=== PATIENT | female | born 1980 | race Two or more races ===

== ENCOUNTER 2021-03-23 09:15 | Outpatient (CLI) | payer OTHER ==
[2021-03-23 16:44] LABS: SARS-CoV-2 PCR by NAA Not Detected (NotDetected)
== END 2021-03-23 09:16 | disposition home or self-care (01) ==
LOC: CSHLAB 09:15
PROVIDERS: ATTEND Family Medicine
DX: Z20.822 Contact with and (suspected) exposure to COVID-19 (principal)
CPT/HCPCS: 87635; U0003; U0005

== ENCOUNTER 2021-03-27 05:20 | Inpatient (IN) | payer OTHER ==
[2021-03-27] MEDS ORDERED: Lactated Ringer's 1,000 ML IV SCH (05:21)
[2021-03-27] MEDS ORDERED: Promethazine HCl 25 MG/ML VIAL IM PRN ×2 (05:21→10:54)
[2021-03-27] MEDS ORDERED: Bicitra 30 ML UDCUP PO SCH (05:21)
[2021-03-27] MEDS ORDERED: Ondansetron PF 4 MG/2 ML Vial IVP PRN ×2 (05:21→10:54)
[2021-03-27] MEDS ORDERED: Famotidine/PF 20 mg/2ml Vial SLOW IVP PRN (05:21)
[2021-03-27] MEDS ORDERED: CEFAZOLIN 2 GM in Premix Bag 1 BAG IVPB SCH (05:21)
[2021-03-27] MEDS ORDERED: hydrALAZINE 20 MG/ML VIAL SLOW IVP PRN ×2 (05:21→10:54)
[2021-03-27] MEDS ORDERED: ceFAZolin 1 GM/D5W 1 GM in Premix Bag 1 BAG IVPB SCH (05:30)
[2021-03-27 06:24] VITALS: BMI 40.2
[2021-03-27 06:47] LABS: Hemoglobin 12.8 g/dL (12.0-15.5); Mean Corpuscular HGB CONC 32.9 g/dL (32.0-36.0); Mean Corpuscular Hemoglobin 29.1 pg (27.0-33.0); Mean Corpuscular Volume 88.4 fl (81.6-98.3); Mean Platelet Volume 9.2 fl (7.4-10.4); Platelet Count 263 10x3/uL (150-450); RBC Distribution Width 13.9 % (11.5-14.5); White Blood Cell (WBC) Count 10.6 10x3/uL (3.5-10.5)
[2021-03-27 07:31] LABS: Syphilis Antibody Nonreactive (Nonreactive); Syphilis Antibody Index 0.02 S/CO (<1.00 Non-Reactive)
[2021-03-27 07:32] LABS: Hep B Surf Ag Non-Reactive S/CO (NonReactive)
[2021-03-27] MEDS ORDERED: Oxytocin 10 UNITS/ML VIAL ONE (07:35)
[2021-03-27] MEDS ORDERED: PHENYLEPHRINE-NS 100 MCG/ML 10 ML SYRINGE ONE (07:35)
[2021-03-27] MEDS ORDERED: Morphine PF 10 MG/10 ML VIAL ONE (07:40)
[2021-03-27 07:43] LABS: HBSAg Index 0.18 S/CO (0-0.99)
[2021-03-27] MEDS ORDERED: Ondansetron PF 4 MG/2 ML Vial ONE (08:13)
[2021-03-27] MEDS ORDERED: Dexamethasone 4 mg/ml Vial ONE (08:13)
[2021-03-27] MEDS ORDERED: Fentanyl 100 MCG/2 ML VIAL ONE (08:29)
[2021-03-27] MEDS ORDERED: diphenhydrAMINE 25 MG CAP PO PRN (10:54)
[2021-03-27] MEDS ORDERED: Lanolin Ointment 7 GM TUBE TOP PRN (10:54)
[2021-03-27] MEDS ORDERED: Adacel (T-DAP) 0.5 ML SYRINGE IM ONE (10:54)
[2021-03-27] MEDS ORDERED: Bisacodyl 10 MG SUPP PR PRN (10:54)
[2021-03-27] MEDS ORDERED: HYDROcodone/Acetaminophen 5/325 mg Tablet PO PRN (10:54)
[2021-03-27] MEDS ORDERED: Meperidine HCl/PF 25 MG/ML VIAL IM PRN (10:54)
[2021-03-27] MEDS ORDERED: Acetaminophen 500 MG TAB PO PRN (11:01)
[2021-03-27] MEDS ORDERED: NS w/ Oxytocin 30 units 500 ML ONE (11:09)
[2021-03-27] MEDS: Ketorolac Tromethamine 30 MG/ML VIAL IVP SCH ×2 (13:09→17:41)
[2021-03-27] MEDS: Simethicone Chewable 80 MG TAB PO PRN (17:42)
[2021-03-27] MEDS: Docusate Calcium (SURFAK) 240 MG CAP PO SCH (21:42)
[2021-03-27] MEDS: Ferrous Sulfate 325 MG TAB PO SCH (23:02)
[2021-03-28] MEDS: Ketorolac Tromethamine 30 MG/ML VIAL IVP SCH ×3 (00:36→06:33)
[2021-03-28] MEDS: Simethicone Chewable 80 MG TAB PO PRN ×2 (05:06→17:00)
[2021-03-28] MEDS ORDERED: Ibuprofen 800 MG TAB PO SCH (06:30)
[2021-03-28 06:33] LABS: Hemoglobin 10.5 g/dL (12.0-15.5); Mean Corpuscular HGB CONC 32.6 g/dL (32.0-36.0); Mean Corpuscular Hemoglobin 29.1 pg (27.0-33.0); Mean Corpuscular Volume 89.2 fl (81.6-98.3); Mean Platelet Volume 9.8 fl (7.4-10.4); Platelet Count 256 10x3/uL (150-450); Red Blood Cell (RBC) Count 3.61 10x6/uL (3.90-5.03); White Blood Cell (WBC) Count 10.5 10x3/uL (3.5-10.5)
[2021-03-28] MEDS: Prenatal Vitamin 1 TAB PO SCH (08:53)
[2021-03-28] MEDS: HYDROcodone/Acetaminophen 5/325 mg Tablet PO PRN ×3 (08:53→18:36)
[2021-03-28] MEDS: Docusate Calcium (SURFAK) 240 MG CAP PO SCH ×2 (08:53→22:04)
[2021-03-28] MEDS: Ibuprofen 800 MG TAB PO SCH ×2 (14:05→22:04)
[2021-03-28] MEDS: Ferrous Sulfate 325 MG TAB PO SCH ×2 (16:58→21:30)
[2021-03-29] MEDS: Simethicone Chewable 80 MG TAB PO PRN (00:50)
[2021-03-29] MEDS: Ibuprofen 800 MG TAB PO SCH ×3 (05:25→21:31)
[2021-03-29] MEDS: HYDROcodone/Acetaminophen 5/325 mg Tablet PO PRN ×2 (10:16→18:53)
[2021-03-29] MEDS: Prenatal Vitamin 1 TAB PO SCH (10:18)
[2021-03-29] MEDS: Docusate Calcium (SURFAK) 240 MG CAP PO SCH ×2 (10:18→21:31)
[2021-03-29] MEDS: Ferrous Sulfate 325 MG TAB PO SCH (15:32)
[2021-03-30] MEDS: HYDROcodone/Acetaminophen 5/325 mg Tablet PO PRN (03:19)
[2021-03-30] MEDS: Ibuprofen 800 MG TAB PO SCH (05:05)
[2021-03-30] MEDS: Simethicone Chewable 80 MG TAB PO PRN (05:06)
[2021-03-30 07:51] VITALS: BP 142/73; TEMP 97.9
[2021-03-30] MEDS: Prenatal Vitamin 1 TAB PO SCH (08:45)
[2021-03-30] MEDS: Ferrous Sulfate 325 MG TAB PO SCH (08:45)
[2021-03-30] MEDS: Docusate Calcium (SURFAK) 240 MG CAP PO SCH (08:45)
== END 2021-03-30 11:47 | disposition home or self-care (01) | DRG 787 ==
LOC: CSHLD 05:20 → CSHPP 11:25
PROVIDERS: ADMIT Family Medicine; ATTEND Family Medicine
PROC: 10D00Z1 Extraction of Products of Conception, Low, Open Approach (ICD-10-PCS; principal; 2021-03-27)
DX: O34.211 Maternal care for low transverse scar from previous cesarean delivery (principal); O10.02 Pre-existing essential hypertension complicating childbirth; Z3A.38 38 weeks gestation of pregnancy; Z37.0 Single live birth; O43.193 Other malformation of placenta, third trimester
CPT/HCPCS: 36415; 51702; 85027; 86780; 86850; 86900; 86901; 87340; J0690; J1100; J1885; J2274; J2405; J2590; J3010; Q0163